=== PATIENT | male | born 1945 | race Caucasian/White ===

== ENCOUNTER 2021-09-26 06:34 | Day surgery (SDC) | payer MEDICARE, BC ==
[2021-09-26] VITALS (7 sets, daily range): BP systolic 107–129; BP diastolic 59–80
[~2021-09-26] VITALS: Ht 177.8 cm; Wt 66.6 kg
[2021-09-26] MEDS ORDERED: EZET10TA48 PO (07:10)
[2021-09-26] MEDS ORDERED: Red Yeast Rice (07:20)
[2021-09-26] MEDS ORDERED: Vitamin B Complex (07:20)
[2021-09-26] MEDS ORDERED: Ginkgo Biloba (07:20)
[2021-09-26] MEDS ORDERED: Vitamin C (07:20)
[2021-09-26] MEDS ORDERED: Tumeric (07:20)
[2021-09-26] MEDS ORDERED: Vitamin D (07:20)
[2021-09-26] MEDS ORDERED: MULT-1085 PO (07:20)
[2021-09-26] MEDS ORDERED: OMEGA (07:20)
[2021-09-26] MEDS ORDERED: Calcium Carbonate (07:20)
[2021-09-26] MEDS ORDERED: CO Q10 (07:20)
[2021-09-26] MEDS ORDERED: Selenium (07:20)
[2021-09-26] MEDS ORDERED: PRESERVISION AREDS (07:20)
[2021-09-26] MEDS ORDERED: Magnesium Oxide (07:20)
[2021-09-26 07:42] LABS: BASOPHILS # (AUTO) 0.1 X10'3 (0-0.2); BASOPHILS % (AUTO) 0.8 % (0-1); EOSINOPHILS # (AUTO) 0.1 X10'3 (0-0.9); EOSINOPHILS % (AUTO) 2.1 % (0-6); HEMATOCRIT 42.2 % (42.0-52.0); HEMOGLOBIN 14.3 g/dl (14.0-17.9); LYMPHOCYTES # (AUTO) 2.3 X10'3 (1.1-4.8); LYMPHOCYTES % (AUTO) 34.8 % (21-51); MEAN CORPUSCULAR HEMOGLOBIN 32.1 PG (27.0-31.0); MEAN CORPUSCULAR VOLUME 94.4 FL (78-98); MONOCYTES # (AUTO) 0.7 X10'3 (0-0.9); MONOCYTES % (AUTO) 10.7 % (2-12); NEUTROPHILS # (AUTO) 3.3 X10'3 (1.8-7.7); NEUTROPHILS % (AUTO) 51.6 % (42-75); PLATELET COUNT 215 X10'3 (140-440); RED BLOOD COUNT 4.47 X10'6 (4.70-6.10); RED CELL DISTRIBUTION WIDTH 12.6 % (11.5-14.5); WHITE BLOOD COUNT 6.5 X10'3 (4.5-11.0)
[2021-09-26] MEDS ORDERED: diphenhydrAMINE 50 mg/ml inj ONE (08:44)
[2021-09-26] MEDS ORDERED: LIDOcaine 1%/PF 5ML 10 MG/ML VIAL ONE (08:45)
[2021-09-26] MEDS ORDERED: fentaNYL/PF 50MCG/1 ML 2ML syringe ONE (08:46)
[2021-09-26] MEDS ORDERED: midazolam 1 mg/ML 2ml injection ONE (08:46)
[2021-09-26] MEDS ORDERED: normal saline 1000ml 1,000 ML IV PRN (08:50)
--- NOTE | 2021-09-26 09:49 | NUR ---
Pt back in room. Site stable, no s/s of bleeding or infection. Pt refused food or drink and this time. States he would like to "rest" for a bit. Will continue to monitor. Pt VS stable as charted.
[2021-09-26] MEDS ORDERED: pneumococcal 23-VAL P-sac vacc 25 mcg/0.5ml vial IMVAC ONE (10:15)
== END 2021-09-26 11:30 | disposition home or self-care (01) ==
LOC: SSTAY O 06:34
PROVIDERS: ATTEND Preventive Medicine Aerospace Medicine
DX: M99.84 Other biomechanical lesions of sacral region (principal); Z79.01 Long term (current) use of anticoagulants; Z85.46 Personal history of malignant neoplasm of prostate
CPT/HCPCS: 20225; 36415; 77002; 85025; 85610; 99152; 99153; J1200; J2250; J3010; J3490; J7030; A4620